=== PATIENT | female | born 1945 | race African-American/Black ===

== ENCOUNTER 2016-11-09 17:11 | Emergency (ER) | payer MEDICARE, MEDICAID ==
[~2016-11-09] VITALS: Ht 167.6 cm; Wt 80.0 kg
[2016-11-09 18:15] LABS: BASOPHILS % 0.8 % (0.0-2.0); EOSINOPHILS % 1.6 % (0.0-5.0); HEMATOCRIT. 34.1 % (36.0-48.0); HEMOGLOBIN. 11.3 g/dL (12.0-16.0); LYMPHOCYTES % 12.7 % (20.0-50.0); MEAN CORPUSCULAR HGB CONC 33.3 g/dL (31.0-37.0); MEAN CORPUSCULAR VOLUME 90.1 fL (81.0-99.0); MEAN PLATELET VOLUME 8.4 fl (7.4-10.4); MONOCYTES % 11.1 % (2.0-8.0); NEUTROPHILS % 73.8 % (40.0-76.0); PLATELET 182 x1000/uL (130-400); RED BLOOD CELL COUNT 3.78 mill/uL (4.2-5.4); WHITE BLOOD COUNT 5.4 x1000/uL (4.5-11.0)
[2016-11-09 18:16] LABS: CHLORIDE 106 mEq/L (98-107); INDEX HEMOLYSI 1 (1-3); INDEX ICTERIC 1 (1-4); INDEX LIPEMIC 1 (1-3)
[2016-11-09 18:20] LABS: INR 1.1; PARTIAL THROMBOPLASTIN TIME 31.2 sec (24.0-34.0)
[2016-11-09 18:24] LABS: ALANINE AMINOTRANSFERASE 13 IU/L (13-61); ALBUMIN 3.4 g/dL (3.4-5.0); ANION GAP 20; CALCIUM 8.8 mg/dL (8.5-10.1); CARBON DIOXIDE 18 mEq/L (21-32); eGFR 3 mL/min (>60)
[2016-11-09 18:34] LABS: UREA NITROGEN BLOOD 142 mg/dL (7-21)
[2016-11-09 18:39] LABS: NT PRO B-TYPE NATRIURETIC PEP 57448 pg/mL (5-125)
[2016-11-09 18:51] LABS: CLARITY URINE CLOUDY (CLEAR); COLOR URINE YELLOW (YELLOW); GLUCOSE URINE NEGATIVE (NEGATIVE); KETONES URINE NEGATIVE (NEGATIVE); LEUKOCYTE ESTERASE URINE 3+ (NEGATIVE); NITRITE URINE NEGATIVE (NEGATIVE); OCCULT BLOOD URINE 2+ (NEGATIVE); PH URINE 6.5 (4.5-8.0); PROTEIN URINE 2+ (NEGATIVE); SPECIFIC GRAVITY URINE 1.011 (1.005-1.030)
[2016-11-09 19:38] LABS: BACTERIA URINE 2+; WBC URINE 25-50 /hpf (0-2)
[2016-11-09 19:39] LABS: SQUAMOUS EPITHELIAL CELL URINE 1+ /lpf (RARE/1+)
[2016-11-10 16:48] VITALS: BP 132/86
[2016-11-10] MEDS ORDERED: CEPHALEXIN 500MG CAPSULE PO ONE (17:00)
[2016-11-13] MEDS ORDERED: CEPH500C2 PO (17:09)
== END 2016-11-10 17:41 | disposition home or self-care (01) ==
LOC: ER 17:13
DX: N39.0 Urinary tract infection, site not specified (principal); Z88.6 Allergy status to analgesic agent; N18.6 End stage renal disease; Z99.2 Dependence on renal dialysis
CPT/HCPCS: 36415; 71010; 80053; 81001; 83880; 85025; 85610; 85730; 87077; 87086; 87186; 93005; 99285